=== PATIENT | female | born 2000 | race African-American/Black ===

== ENCOUNTER 2021-06-04 15:53 | Emergency (ER) | payer OTHER, SELFPAY ==
--- NOTE | 2021-06-04 16:03 | ED.SKABFB ---
HPI - Skin/Abscess/Foreign Bdy General Chief complaint: Skin/Abscess/Foreign Body Stated complaint: Skin Sore Time Seen by Provider: 06/04/21 16:03 Source: patient and RN notes reviewed History of Present Illness HPI narrative: Patient is a 20-year-old female who presents the urgent care with complaints of an abscess on the right arm. Patient states is been there since Saturday and she has been trying to pop it by squeezing on it . Patient states that she did get a scant amount of drainage yesterday. States that she has been putting Neosporin to the area. Denies of any fever, chills, nausea, vomiting. Patient states she has had a history of them in the past but they have resolved on their own within a few days. No other acute complaints. No acute distress noted. Patient aware of the plan of care. Some parts of this dictation were generated by voice recognition software and may contain typographical and/or grammatical inaccuracies. Related Data Allergies Allergy/AdvReac Type Severity Reaction Status Date / Time coconut Allergy Hives Verified 06/04/21 16:10 Review of Systems Review of Systems: CONSTITUTIONAL: Denies fever, chills, or sweats. EYES: Denies visual changes, redness, or discharge. ENT: Denies rhinorrhea, congestion, sore throat, or otalgia. CARDIOVASCULAR: Denies chest pain, palpitations, or edema. RESPIRATORY: Denies cough or dyspnea. GASTROINTESTINAL: Denies abdominal pain, nausea, vomiting, or diarrhea. GENITOURINARY: Denies dysuria or hematuria. SKIN: Reports of an abscess under the right arm MUSCULOSKELETAL: Denies back pain, joint pain, or myalgia. NEUROLOGIC: Denies headache, numbness, or weakness. All other systems reviewed are negative, except as documented in HPI. PMFSH Comments At the time of my signature, I reviewed and agree with the nursing past medical, surgical, social, and family history. There is no relevant family history pertinent to the patient complaint. Exam Narrative: GENERAL: This is a well-nourished, well-developed patient, in no apparent distress. HEAD: normocephalic, atraumatic. EYES: PERRL. Sclera clear/white. Vision is grossly intact. EARS: External ears normal NOSE: External nose normal with no obvious nasal discharge, nares without redness, no rhinorrhea. THROAT: Mucous membranes moist NECK: Neck supple CARDIOVASCULAR: Regular rate and rhythm without murmurs, gallops, or rubs. RESPIRATORY: Clear to auscultation. Breath sounds equal bilaterally. No wheezes, rales, or rhonchi. SKIN: 6 x 3 cm nonfluctuant, firm nonerythemic abscess to the right axilla. Warm, intact with no suspicious lesions or rash, good texture and turgor. NEURO: awake, alert, and oriented to person, place and time. There were no obvious focal neurologic abnormalities. EXTREMITIES: No clubbing, cyanosis, or edema. Course Vital Signs Vital signs: Vital Signs Temperature 98.0 F 06/04/21 16:12 Pulse Rate 95 06/04/21 16:12 Respiratory Rate 14 06/04/21 16:12 Blood Pressure 116/54 L 06/04/21 16:12 Pulse Oximetry 100 06/04/21 16:12 Temperature 98.0 F 06/04/21 16:12 Pulse Rate 95 06/04/21 16:12 Respiratory Rate 14 06/04/21 16:12 Blood Pressure 116/54 L 06/04/21 16:12 Pulse Oximetry 100 06/04/21 16:12 Reviewed MDM - Skin/Abscess/Foreign Bdy MDM Narrative Medical decision making narrative: Advised the patient to complete oral antibiotic regimen as prescribed. Be sure to eat with the medication. Use a warm compress to the area for comfort and pain relief. Continue Tylenol/ibuprofen as needed. If you develop any increase in pain associated fever, nausea, vomiting?go to the emergency room. Do not attempt to pop the area. It will either come to the surface and drain on its own or will dissipate with the antibiotics and warm compress. Follow-up with your PCP within 2 to 5 days or for worsening symptoms or failure to improve. Differential Diagnosis Differential diagnosis: Likely abs
[2021-06-04 16:12] VITALS: BP 116/54; PULSE 95; RESP 14; TEMP 36.7; O2SAT 100
== END 2021-06-04 16:22 | disposition home or self-care (01) ==
PROVIDERS: Emergency Provider Nurse Practitioner Family; PCP Nurse Practitioner Family
DX: L02.411 Cutaneous abscess of right axilla (principal)
CPT/HCPCS: 99213; G0463

== ENCOUNTER 2021-06-11 17:50 | Emergency (ER) | payer OTHER, SELFPAY ==
--- NOTE | 2021-06-11 18:00 | ED.GENADULT ---
HPI - General Adult General Chief complaint: Skin/Abscess/Foreign Body Stated complaint: Skin Sore Time Seen by Provider: 06/11/21 18:00 Source: patient Mode of arrival: ambulatory Limitations: no limitations History of Present Illness HPI narrative: 21-year-old female patient presents to the [facility] complaining of a boil under the right arm for about a month now. Patient states she came here about 2 weeks ago was given oral antibiotics. Patient states it did drain a little bit but states it was not opened up at that time. Patient states she finished the antibiotics but discontinued she got to get larger and is complaining of increasing pain. Denies fevers, body aches or chills. Related Data Allergies Allergy/AdvReac Type Severity Reaction Status Date / Time coconut Allergy Hives Verified 06/04/21 16:10 Review of Systems Review of Systems: CONSTITUTIONAL: Denies fever, chills, or sweats. EYES: Denies visual changes, redness, or discharge. ENT: Denies rhinorrhea, congestion, sore throat, or otalgia. CARDIOVASCULAR: Denies chest pain, palpitations, or edema. RESPIRATORY: Denies cough or dyspnea. GASTROINTESTINAL: Denies abdominal pain, nausea, vomiting, or diarrhea. GENITOURINARY: Denies dysuria or hematuria. SKIN: Denies rash or itching. Positive abscess to right axillary MUSCULOSKELETAL: Denies back pain, joint pain, or myalgia. NEUROLOGIC: Denies headache, numbness, or weakness. PSYCHIATRIC: Denies anxiety or depression. PMFSH Comments At the time of my signature I agree with nursing past medical history, surgical, social, and family history. There is no relevant family history pertinent to the presenting complaint. Exam Narrative: GENERAL: Well-appearing, well-nourished, and in no acute distress. HEAD: Normocephalic, atraumatic. EYES: PERRLA and EOMI. ENT: Nares clear, no rhinorrhea or epistaxis. Mucous membranes moist. NECK: Supple. No lymphadenopathy CHEST: Clear to auscultation. No respiratory distress. HEART: Regular rate and rhythm. No murmur heard. Normal peripheral pulses. ABDOMEN: Soft, nontender, nondistended, normal active bowel sounds. EXTREMITIES: Normal range of motion. No edema. SKIN: Warm, dry, no rash. Patient has a large abscess noted to the right axilla that measures approximately 8 cm x 5 cm. NEURO: No focal deficits. Alert and oriented x3. Course Vital Signs Vital signs: Vital Signs Temperature 36.8 C 06/11/21 18:01 Pulse Rate 87 06/11/21 18:01 Respiratory Rate 16 06/11/21 18:01 Blood Pressure 118/75 06/11/21 18:01 Pulse Oximetry 98 06/11/21 18:01 Temperature 36.8 C 06/11/21 18:01 Pulse Rate 87 06/11/21 18:01 Respiratory Rate 16 06/11/21 18:01 Blood Pressure 118/75 06/11/21 18:01 Pulse Oximetry 98 06/11/21 18:01 Vital signs reviewed Procedures Abscess I/D upper extremity: Date of Incision: 06/11/21 Time of Incision: 18:39 Side (if applicable): right Sedation/analgesia: none Local Anesthetic: lidocaine 1% Amount of anesthesia used (mL): 10 Technique: incised with #11 blade Irrigation: Yes Packing used?: iodoform I&D Results: Pus Complications: pain and bleeding Abcess I&D Additional Comments: The procedure was explained and verbal consent is obtained. The wound was anesthetized with 10ml of 1% lidocaine with good anesthesia. Sterile drape and prep are done. The fluctuant center was incised with #11 blade scalpel. A large amount of (excudate material) was expressed. The wound was probed for loculated area and irrigated with normal saline. Wound was packed with wick. Dressing was applied. The patient tolerated the procedure well. Medical Decision Making Differential Diagnosis Differential Diagnosis: Differential diagnosis: Abscess, cellulitis, hidradenitis, laceration, puncture wound. My care for patient is to open up the abscess and drain the wound most likely will discharge h
[2021-06-11 18:01] VITALS: BP 118/75; PULSE 87; RESP 16; TEMP 36.8; O2SAT 98
== END 2021-06-11 18:48 | disposition home or self-care (01) ==
PROVIDERS: Emergency Provider Nurse Practitioner Family
DX: L02.411 Cutaneous abscess of right axilla (principal)
CPT/HCPCS: 10061; 87070; 87075; 87076; 87077; 87205; 99213; G0463

== ENCOUNTER 2021-06-13 09:26 | Emergency (ER) | payer OTHER, SELFPAY ==
--- NOTE | 2021-06-13 09:32 | ED.SKABFB ---
HPI - Skin/Abscess/Foreign Bdy General Chief complaint: Skin/Abscess/Foreign Body Stated complaint: Absessed under arm Time Seen by Provider: 06/13/21 09:32 Source: patient and RN notes reviewed History of Present Illness HPI narrative: Patient is a 21-year-old female who presents the urgent care to have her packing removed from her abscess under her arm. Patient was seen at the facility on 11 June and told to follow-up with her PCP for reevaluation in 2 days and to have the packing removed. Patient states that her doctor is out of town and she has been unable to see her PCP in the office. Patient was placed on Bactrim and states that she has been taking antibiotic as prescribed. Microbiology is still pending. Patient denies of any recent fevers, nausea, vomiting. No other acute complaints. No acute distress noted. Patient aware of the plan of care. Some parts of this dictation were generated by voice recognition software and may contain typographical and/or grammatical inaccuracies. Related Data Allergies Allergy/AdvReac Type Severity Reaction Status Date / Time coconut Allergy Hives Verified 06/13/21 09:44 Review of Systems Review of Systems: CONSTITUTIONAL: Denies fever, chills, or sweats. EYES: Denies visual changes, redness, or discharge. ENT: Denies rhinorrhea, congestion, sore throat, or otalgia. CARDIOVASCULAR: Denies chest pain, palpitations, or edema. RESPIRATORY: Denies cough or dyspnea. GASTROINTESTINAL: Denies abdominal pain, nausea, vomiting, or diarrhea. GENITOURINARY: Denies dysuria or hematuria. SKIN: Requesting removal of the packing to an axilla abscess MUSCULOSKELETAL: Denies back pain, joint pain, or myalgia. NEUROLOGIC: Denies headache, numbness, or weakness. All other systems reviewed are negative, except as documented in HPI. PMFSH Comments At the time of my signature, I reviewed and agree with the nursing past medical, surgical, social, and family history. There is no relevant family history pertinent to the patient complaint. Exam Narrative: GENERAL: This is a well-nourished, well-developed patient, in no apparent distress. HEAD: normocephalic, atraumatic. EYES: PERRL. Sclera clear/white. Vision is grossly intact. EARS: External ears normal NOSE: External nose normal with no obvious nasal discharge, nares without redness, no rhinorrhea. THROAT: Mucous membranes moist, posterior pharynx clear. NECK: Neck supple, non-tender without lymphadenopathy, masses or thyromegaly. CARDIOVASCULAR: Regular rate and rhythm without murmurs, gallops, or rubs. RESPIRATORY: Clear to auscultation. Breath sounds equal bilaterally. No wheezes, rales, or rhonchi. SKIN: Packing noted to draining abscess under the right axilla with mild to moderate tenderness without erythema; scant yellow to bloody drainage NEURO: awake, alert, and oriented to person, place and time. There were no obvious focal neurologic abnormalities. EXTREMITIES: No clubbing, cyanosis, or edema. Course Vital Signs Vital signs: Vital Signs Temperature 97.9 F 06/13/21 09:36 Pulse Rate 71 06/13/21 09:36 Respiratory Rate 16 06/13/21 09:36 Blood Pressure 136/86 06/13/21 09:36 Pulse Oximetry 100 06/13/21 09:36 Temperature 97.9 F 06/13/21 09:36 Pulse Rate 71 06/13/21 09:36 Respiratory Rate 16 06/13/21 09:36 Blood Pressure 136/86 06/13/21 09:36 Pulse Oximetry 100 06/13/21 09:36 Reviewed Procedures Other Procedure Procedure 1: Other Procedure: Packing removed from abscess of the right axilla. Scant yellow to bloody drainage noted. Tenderness surrounding the firm draining abscess. Covered with a 4 x 4 gauze and bandage. Iron MDM - Skin/Abscess/Foreign Bdy MDM Narrative Medical decision making narrative: Advised the patient to continue keeping the wound clean with plain Dial soap and water. May use Neosporin to the area. Keep it covered with gauze and a bandage as directed. If you develop any increase
[2021-06-13 09:36] VITALS: BP 136/86; PULSE 71; RESP 16; TEMP 36.6; O2SAT 100
== END 2021-06-13 09:52 | disposition home or self-care (01) ==
PROVIDERS: Emergency Provider Nurse Practitioner Family
DX: L02.411 Cutaneous abscess of right axilla (principal); Z48.01 Encounter for change or removal of surgical wound dressing
CPT/HCPCS: 99211; G0463